=== PATIENT | male | born 1950 | race American Indian/Alaskan Native ===

== ENCOUNTER 2019-09-16 21:16 | Inpatient (IN) | payer MEDICARE ==
[2019-09-16] MEDS ORDERED: AMIODARONE 150 MG/3 ML INJ IV ONE (22:02)
[2019-09-16] MEDS ORDERED: AMIODARONE 150 MG in DEXTROSE 5% IN WATER 100 ML IV ONE (22:03)
--- NOTE | 2019-09-16 22:09 | Emergency Department Report ---
ED Syncope HPI - General Chief Complaint: Syncope Stated Complaint: SYNCOPE Time Seen by Provider: 09/16/19 21:53 Source: patient - History of Present Illness Initial Comments: 69-year-old male with history of CAD with stents, A. fib, hypertension, diabetes, presents to ED following a syncopal episode at home. Patient states he was sitting in his chair, began feeling lightheaded, and woke up on the fl oor. Patient reports chest pain and palpitations. States he has been having chest pain for the last 2 weeks. States pain is substernal, nonradiating. The patient reports he is on Eliquis for anticoagulation. Patient denies having a criminal defense lawyer. Patient states he was recently seen at [facility] for chest pain 2 weeks ago. Reports that he was not admitted, he was discharged from the ER. Timing/Prior Episodes: single episode today Precipitating Factors: Positive: lightheadedness Loss of Consciousness: unsure Current Symptoms: chest pain - Related Data Allergies/Adverse Reactions: Allergies DENNIS Inhibitors Allergy (Verified 09/16/19 22:05) Unknown ED Review of Systems ROS: Stated complaint: SYNCOPE Other details as noted in HPI Comment: All other systems reviewed and negative Constitutional: denies: chills, fever Respiratory: shortness of breath Cardiovascular: chest pain, palpitations Gastrointestinal: denies: abdominal pain, nausea, vomiting ED Past Medical Hx - Past Medical History Previous Medical History?: Yes Hx Hypertension: Yes Hx CVA: Yes Hx Congestive Heart Failure: Yes Hx Diabetes: Yes Hx COPD: Yes Additional medical history: Afib - Surgical History Past Surgical History?: No - Social History Smoking Status: Unknown if ever smoked Substance Use Type: None ED Physical Exam - General Limitations: No Limitations General appearance: alert, in no apparent distress - Head Head exam: Present: atraumatic, normocephalic - Eye Eye exam: Present: normal appearance, EOMI - ENT ENT exam: Present: mucous membranes moist - Neck Neck exam: Present: normal inspection - Respiratory Respiratory exam: Present: normal lung sounds bilaterally. Absent: respiratory distress - Cardiovascular Cardiovascular Exam: Present: tachycardia, irregular rhythm - GI/Abdominal GI/Abdominal exam: Present: soft. Absent: distended, tenderness - Extremities Exam Extremities exam: Present: normal inspection - Neurological Exam Neurological exam: Present: alert, oriented X3 - Psychiatric Psychiatric exam: Present: normal affect, normal mood - Skin Skin exam: Present: warm, dry, intact, normal color ED Course Vital Signs 09/16/19 09/16/19 09/16/19 21:45 22:00 22:03 Temperature 98.6 F Pulse Rate 128 H 155 H 135 H Respiratory 23 15 16 Rate Blood Pressure 189/148 Blood Pressure 130/83 189/148 [Left] O2 Sat by Pulse 99 97 100 Oximetry 09/16/19 09/16/19 09/17/19 22:53 23:01 00:01 Temperature Pulse Rate 112 H 110 H 107 H Respiratory 14 13 Rate Blood Pressure 187/112 169/125 154/96 Blood Pressure [Left] O2 Sat by Pulse 98 97 Oximetry 09/17/19 09/17/19 09/17/19 01:00 02:00 03:01 Temperature Pulse Rate 107 H 105 H 112 H Respiratory 12 20 15 Rate Blood Pressure 152/105 146/107 146/107 Blood Pressure [Left] O2 Sat by Pulse 96 97 98 Oximetry - Reevaluation(s) Reevaluation #1: 09/16/19 22:00 Pt reports hx of Afib. On monitor, pt appears to be in Afib w/ RVR, but having several runs of Vtach. Amiodarone 150 given. HR improved. Amio drip ordered. Awaiting labs. - Consultations Consultation #1: 09/17/19 00:18 Spoke w/ Dr Franks. Aware of pt, ok w/ amiodarone gtt ED Medical Decision Making - Lab Data Result diagrams: 09/16/19 Unknown 09/16/19 Unknown - EKG Data -: EKG Interpreted by Co EKG shows normal: QRS complexes Rate: tachycardia - EKG Data Interpretation: nonspecific ST-T wave kody - Radiology Data Radiology results: report reviewed, image reviewed - Medical Decision Making 69-year-old male presents to ED with syncopal episode. Patient found to be in A. fib with RVR, also having nonsustained ventricular tachycardia. Amiodarone bolus and drip administered. Rate improved, along with runs of V. tach. Tropon in is normal. Hydralazine given for elevated blood pressure. Patient reports he is currently taking Eliquis for anticoagulation. Spoke with hospitalist, Dr Parada, will admit for further management. - Differential Diagnosis arrythmia, dehydration, electrolyte abnormality, ACS Critical Care Time: Yes Critical care time in (mins) excluding proc time.: 35 Critical care attestation.: If time is entered above; I have spent that time in minutes in the direct care of this critically ill patient, excluding procedure time. Critical Care Time: 35 min ED Disposition Clinical Impression: Syncope, Atrial fibrillation with RVR, Ventricular tachycardia, nonsustained, Hypertensive emergency Disposition: 09 OP ADMIT IP TO THIS HOSP Is pt being admited?: Yes Condition: Stable Time of Disposition: 23:45
[2019-09-16] MEDS ORDERED: AMIODARONE 150 MG in DEXTROSE 5% IN WATER 97 ML IV ONE (22:20)
[2019-09-16 22:38] LABS: Basophils # (Auto) 0.1 K/mm3 (0.0-0.1); Basophils % (Auto) 0.7 % (0.0-1.8); Eosinophils # (Auto) 0.5 K/mm3 (0.0-0.4); Hematocrit 42.2 % (35.5-45.6); Lymphocytes # (Auto) 3.8 K/mm3 (1.2-5.4); Lymphocytes % (Auto) 30.2 % (13.4-35.0); Mean Corpuscular HGB Conc 36 % (32-34); Mean Corpuscular Volume 82 fl (84-94); Monocytes # (Auto) 0.9 K/mm3 (0.0-0.8); Monocytes % (Auto) 7.1 % (0.0-7.3); Platelet Count 264 K/mm3 (140-440); Red Blood Count 5.12 M/mm3 (3.65-5.03); Red Cell Distribution Width 13.7 % (13.2-15.2)
--- NOTE | 2019-09-16 22:43 | XRay Report ---
CHEST 1 VIEW INDICATION / CLINICAL INFORMATION: syncope. COMPARISON: None available. FINDINGS: SUPPORT DEVICES: None. HEART / MEDIASTINUM: No significant abnormality. LUNGS / PLEURA: No significant pulmonary or pleural abnormality. No pneumothorax. ADDITIONAL FINDINGS: No significant additional findings. IMPRESSION: 1. No significant change Signer Name: Hernán Alejandro MD Signed: 09/16/2019 10:38 PM Workstation Name: [id number]
[2019-09-16 22:49] LABS: INR 1.08 (0.87-1.13)
[2019-09-16] MEDS ORDERED: hydrALAZINE 20 MG/1 ML INJ ONE (22:49)
[2019-09-16 22:50] LABS: Partial Thromboplastin Time 25.6 Sec. (24.2-36.6)
[2019-09-16] MEDS ORDERED: hydrALAZINE 20 MG/1 ML INJ IV ONE (22:53)
[2019-09-16] MEDS: AMIODARONE 900 MG in DEXTROSE 5% IN WATER 482 ML IV SCH (23:00)
[2019-09-17] MEDS ORDERED: ONDANSETRON 4 MG/2 ML INJ IV PRN (00:40)
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
[2019-09-17] MEDS ORDERED: hydrALAZINE 20 MG/1 ML INJ IV ONE (05:30)
[2019-09-17] MEDS ORDERED: hydrALAZINE 20 MG/1 ML INJ ONE ×3 (05:34→18:53)
[2019-09-17] MEDS ORDERED: MORPHINE 2 MG/1 ML INJ ONE ×3 (08:42→15:47)
[2019-09-17] MEDS: MORPHINE 2 MG/1 ML INJ IV PRN ×2 (08:56→15:52)
--- NOTE | 2019-09-17 11:36 | Event Note ---
Date: 09/17/19 Patient seen and examined. We'll continue the plan as outlined in H&P. Time spent = 26 minutes with greater than 50% of time spent on coordination of care and counseling.
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
[2019-09-17] MEDS: hydrALAZINE 20 MG/1 ML INJ IV PRN (13:04)
[2019-09-17] MEDS ORDERED: HEPARIN 5,000 UNIT/1 ML VIAL ONE (14:40)
[2019-09-17] MEDS: HEPARIN 5,000 UNIT/1 ML VIAL SUB-Q SCH ×2 (14:46→23:08)
[2019-09-18] MEDS: hydrALAZINE 20 MG/1 ML INJ IV PRN ×2 (00:27→15:46)
[2019-09-18] MEDS: AMIODARONE 900 MG in DEXTROSE 5% IN WATER 482 ML IV SCH (01:00)
[2019-09-18] MEDS: HEPARIN 5,000 UNIT/1 ML VIAL SUB-Q SCH (05:09)
[2019-09-18 07:59] LABS: Basophils # (Auto) 0.1 K/mm3 (0.0-0.1); Basophils % (Auto) 0.5 % (0.0-1.8); Eosinophils # (Auto) 0.2 K/mm3 (0.0-0.4); Eosinophils % (Auto) 1.9 % (0.0-4.3); Hematocrit 41.7 % (35.5-45.6); Hemoglobin 14.5 gm/dl (11.8-15.2); Lymphocytes # (Auto) 2.5 K/mm3 (1.2-5.4); Lymphocytes % (Auto) 23.8 % (13.4-35.0); Mean Corpuscular HGB Conc 35 % (32-34); Mean Corpuscular Volume 82 fl (84-94); Monocytes # (Auto) 0.6 K/mm3 (0.0-0.8); Monocytes % (Auto) 6.1 % (0.0-7.3); Platelet Count 242 K/mm3 (140-440); Red Blood Count 5.06 M/mm3 (3.65-5.03); Red Cell Distribution Width 13.9 % (13.2-15.2)
[2019-09-18 08:07] LABS: INR 1.12 (0.87-1.13)
[2019-09-18 08:08] LABS: Partial Thromboplastin Time 30.2 Sec. (24.2-36.6)
[2019-09-18 08:14] LABS: Calcium 8.6 mg/dL (8.4-10.2)
--- NOTE | 2019-09-18 10:14 | Progress Note ---
Assessment and Plan Assessment and plan: Syncope. Continued telemetry monitoring. Follow-up echocardiogram and carotid Dopplers. Ischemic evaluation per cardiology. Paroxysmal atrial fibrillation. Follow-up echocardiogram and check TSH. JANICE. I suspect the patient has chronic kidney disease. we do not have a baseline creatinine to compare. Follow-up BMP in a.m. Check renal ultrasound. History of coronary artery disease. As above per cardiology. Type 2 diabetes mellitus. Accu-Cheks and sliding scale insulin. Essential hypertension. Continue home antihypertensive medications Hyperlipidemia. Continue statins. History Interval history: No new issues overnight. Hospitalist Physical - Constitutional Vitals: Temp Pulse Resp BP Pulse Ox 99.0 F 74 18 183/88 95 09/18/19 08:29 09/18/19 08:29 09/18/19 08:29 09/18/19 08:29 09/18/19 08:29 General appearance: Present: no acute distress, well-nourished - EENT Eyes: Present: PERRL, EOM intact ENT: hearing intact, clear oral mucosa, dentition normal - Neck Neck: Present: supple, normal ROM - Respiratory Respiratory effort: normal Respiratory: bilateral: CTA - Cardiovascular Rhythm: regular Heart Sounds: Present: S1 & S2. Absent: gallop, rub - Extremities Extremities: no ischemia, No edema, Full ROM - Abdominal General gastrointestinal: soft, non-tender, non-distended, normal bowel sounds - Integumentary Integumentary: Present: clear, warm, dry - Neurologic Neurologic: CNII-XII intact, moves all extremities Results - Labs CBC & Chem 7: 09/18/19 05:52 09/18/19 05:52 Labs: Laboratory Last Values WBC 10.4 K/mm3 (4.5-11.0) 09/18/19 05:52 RBC 5.06 M/mm3 (3.65-5.03) H 09/18/19 05:52 Hgb 14.5 gm/dl (11.8-15.2) 09/18/19 05:52 Hct 41.7 % (35.5-45.6) 09/18/19 05:52 MCV 82 fl (84-94) L 09/18/19 05:52 MCH 29 pg (28-32) 09/18/19 05:52 MCHC 35 % (32-34) H 09/18/19 05:52 RDW 13.9 % (13.2-15.2) 09/18/19 05:52 Plt Count 242 K/mm3 (140-440) 09/18/19 05:52 Lymph % (Auto) 23.8 % (13.4-35.0) 09/18/19 05:52 [place] % (Auto) 6.1 % (0.0-7.3) 09/18/19 05:52 Eos % (Auto) 1.9 % (0.0-4.3) 09/18/19 05:52 Baso % (Auto) 0.5 % (0.0-1.8) 09/18/19 05:52 Lymph # 2.5 K/mm3 (1.2-5.4) 09/18/19 05:52 [place] # 0.6 K/mm3 (0.0-0.8) 09/18/19 05:52 Eos # 0.2 K/mm3 (0.0-0.4) 09/18/19 05:52 Baso # 0.1 K/mm3 (0.0-0.1) 09/18/19 05:52 Seg Neutrophils % 67.7 % (40.0-70.0) 09/18/19 05:52 Seg Neutrophils # 7.1 K/mm3 (1.8-7.7) 09/18/19 05:52 PT 14.6 Sec. (12.2-14.9) 09/18/19 05:52 INR 1.12 (0.87-1.13) 09/18/19 05:52 APTT 30.2 Sec. (24.2-36.6) 09/18/19 05:52 Sodium 141 mmol/L (137-145) 09/18/19 05:52 Potassium 3.0 mmol/L (3.6-5.0) L D 09/18/19 05:52 Chloride 101.6 mmol/L (98-107) 09/18/19 05:52 Carbon Dioxide 22 mmol/L (22-30) 09/18/19 05:52 Anion Gap 20 mmol/L 09/18/19 05:52 BUN 18 mg/dL (9-20) 09/18/19 05:52 Creatinine 1.8 mg/dL (0.8-1.5) H 09/18/19 05:52 Estimated GFR 45 ml/min 09/18/19 05:52 BUN/Creatinine Ratio 10 % 09/18/19 05:52 Glucose 130 mg/dL (75-100) H 09/18/19 05:52 POC Glucose 111 (70-105) H 09/17/19 19:14 Calcium 8.6 mg/dL (8.4-10.2) 09/18/19 05:52 Troponin T 0.016 ng/mL (0.00-0.029) 09/16/19 Unknown NT-Pro-B Natriuret Pep 626.7 pg/mL (0-900) 09/16/19 Unknown Active Medications - Current Medications Current Medications: Generic Name Dose Route Start Last Admin Trade Name Freq PRN Reason Stop Dose Admin Heparin Sodium (Porcine) 5,000 unit 09/17/19 14:00 09/18/19 05:09 Heparin SUB-Q 5,000 unit Q8HR LYNNE Administration Hydralazine HCl 10 mg 09/17/19 09:18 09/18/19 00:27 Apresoline IV 10 mg Q6H PRN Administration Systolic BP > 170 Amiodarone HCl 900 mg/ 500 mls @ 33.333 mls/hr 09/16/19 23:00 09/18/19 01:00 Dextrose IV 0.5 mg/min DIRECT LYNNE 16.667 mls/hr Administration Protocol 1 MG/MIN Magnesium Hydroxide 30 ml 09/17/19 00:40 Milk Of Magnesia PO Q4H PRN Constipation Morphine Sulfate 2 mg 09/17/19 00:40 09/17/19 15:52 Morphine IV 2 mg Q4H PRN Administration Pain, Moderate (4-6) Ondansetron HCl 4 mg 09/17/19 00:40 Zofran IV Q8H PRN Nausea And Vomiting Pneumococcal Polyvalent Vaccine 0.5 ml 09/18/19 12:00 Pneumovax 23 IM 09/18/19 12:01 .ONCE ONE Sodium Chloride 10 ml 09/17/19 10:00 09/17/19 22:40 Sodium Chloride Flush Syringe 10 Ml IV 10 ml BID LYNNE Administration Sodium Chloride 10 ml 09/17/19 00:40 Sodium Chloride Flush Syringe 10 Ml IV PRN PRN LINE FLUSH Nutrition/Malnutrition Assess - Dietary Evaluation Nutrition/Malnutrition Findings: Nutrition Notes Start: 09/18/19 09:40 Freq: Status: Active Protocol: Document 09/18/19 09:40 LP (Rec: 09/18/19 09:43 LP [id number]) Nutrition Notes Need for Assessment generated from: MD Order Initial or Follow up Assessment Current Diagnosis COPD,Diabetes,Hypertension, Heart Failure Other Pertinent Diagnosis Syncope Current Diet Cardiac Labs/Tests BG 155 Pertinent Medications Reviewed Height 6 ft 1 in Weight 113.398 kg [place] Body Weight (kg) 83.63 BMI 33.0 Weight Status Obese Subjective/Other Information Consult for diet education. Pt states eating well [employer] and not really liking food here. Food preferences noted. Pt denies need for diet education . Nutrition Intervention Revisit per MD consult or patient Sign Off request:
--- NOTE | 2019-09-18 10:41 | Progress Note ---
Assessment and Plan 1. Syncope 2. Paroxysmal atrial fibrillation currently reverted to sinus rhythm 3. History of coronary artery disease 4. Type 2 diabetes mellitus 5. Essential hypertension 6. Hyperlipidemia Plan. Cardiac gee sta ble. BP is low today will discontinue diuresis. Check echo and Lexiscan Subjective Date of service: 09/18/19 Interval history: No cardiac symptoms Objective Vital Signs Temp Pulse Resp BP BP Pulse Ox 09/18/19 08:29 99.0 F 74 18 183/88 95 09/18/19 05:32 99.1 F 09/18/19 05:31 69 18 164/83 99 09/18/19 00:52 87 13 160/92 09/18/19 00:17 18 09/18/19 00:15 99.3 F 71 20 198/81 99 09/18/19 00:04 71 09/17/19 23:52 99.3 F 71 20 198/81 96 09/17/19 23:46 160/92 09/17/19 23:20 27 H 160/92 100 09/17/19 23:10 24 160/92 100 09/17/19 23:00 67 16 162/98 160/92 97 09/17/19 22:50 19 162/98 99 09/17/19 22:40 11 L 162/98 99 09/17/19 22:30 20 175/93 99 09/17/19 22:20 19 175/93 100 09/17/19 22:10 13 175/93 100 09/17/19 22:00 14 164/86 99 09/17/19 21:50 17 164/86 100 09/17/19 21:40 14 164/86 100 09/17/19 21:30 25 H 160/83 100 09/17/19 21:20 13 160/83 99 09/17/19 21:10 15 160/83 98 09/17/19 21:00 67 16 168/88 160/83 98 09/17/19 20:50 22 168/88 99 09/17/19 20:00 10 L 157/106 98 09/17/19 19:00 61 11 L 177/110 98 09/17/19 18:00 81 22 148/120 98 09/17/19 17:01 60 17 186/105 97 09/17/19 16:00 60 14 171/87 95 09/17/19 15:01 64 17 167/92 98 09/17/19 14:46 98 F 68 16 195/94 100 09/17/19 14:01 70 19 185/106 99 09/17/19 13:04 56 L 18 187/106 100 09/17/19 13:00 56 L 18 187/106 99 09/17/19 12:01 59 L 14 174/87 98 09/17/19 12:00 98.4 F 60 16 174/87 100 09/17/19 11:01 58 L 15 162/93 95 09/17/19 11:00 60 16 162/93 100 - Physical Examination General: Appears Well, No Apparent Distress HEENT: Positive: PERRL, Mucus Membranes Moist Neck: Positive: neck supple, trachea midline Cardiac: Lungs: Neuro: Positive: Grossly Intact Abdomen: Positive: Soft, Active Bowel Sounds. Negative: Tender, Distended /Rectal: Normal Prostate, No Masses Skin: Positive: Clear Incision: Cardiac Cath Site Musculoskeletal: No Pain, Normal Range of Motion Gait: Normal Gait Extremities: Present: normal. Absent: edema - Labs and Meds Coagulation 09/18/19 Range/Units 05:52 PT 14.6 (12.2-14.9) Sec. INR 1.12 (0.87-1.13) APTT 30.2 (24.2-36.6) Sec. CBC 09/18/19 Range/Units 05:52 WBC 10.4 (4.5-11.0) K/mm3 RBC 5.06 H (3.65-5.03) M/mm3 Hgb 14.5 (11.8-15.2) gm/dl Hct 41.7 (35.5-45.6) % Plt Count 242 (140-440) K/mm3 Lymph # 2.5 (1.2-5.4) K/mm3 [place] # 0.6 (0.0-0.8) K/mm3 Eos # 0.2 (0.0-0.4) K/mm3 Baso # 0.1 (0.0-0.1) K/mm3 Comprehensive Metabolic Panel 09/18/19 Range/Units 05:52 Sodium 141 (137-145) mmol/L Potassium 3.0 L D (3.6-5.0) mmol/L Chloride 101.6 (98-107) mmol/L Carbon Dioxide 22 (22-30) mmol/L BUN 18 (9-20) mg/dL Creatinine 1.8 H (0.8-1.5) mg/dL Glucose 130 H (75-100) mg/dL Calcium 8.6 (8.4-10.2) mg/dL
[2019-09-18] MEDS ORDERED: PNEUMOCOCCAL 23 Valent 0.5 ML VIAL IM ONE (12:00)
--- NOTE | 2019-09-18 12:54 | Ultrasound Report ---
Retroperitoneal Ultrasound History: JANICE , acute renal insufficiency. Comparison: None Procedure: Real time ultrasound was utilized to evaluate. Findings: The right kidney measures 10.2 cm and the left kidney measures 9.3cm. No hydronephrosis or nephrolithiasis is seen. Both kidneys demonstrate normal echogenicity and normal renal cortical thic kness. No renal masses are seen. No perinephric fluid collections are identified. No ureteral calcu li are noted. The urinary bladder is unremarkable. Incidentally noted is echogenic liver suggestive of hepatic steatosis. Impression: 1. Normal bilateral renal ultrasound. 2. Incidental finding of echogenic liver suggesting hepatic steatosis. Signer Name: Yoselyn Cortes MD Signed: 09/18/2019 12:50 PM Workstation Name: [id number]
[2019-09-18] MEDS ORDERED: HEPARIN/ 0.45% NACL DRIP 25,000 UNIT/500 ML BAG ONE (15:52)
[2019-09-18] MEDS ORDERED: NITROGLYCERIN 0.4 MG TAB SUBL SL ONE (15:56)
[2019-09-18 16:10] LABS: Hemoglobin 15.3 gm/dl (11.8-15.2)
[2019-09-18 16:11] LABS: Hematocrit 42.8 % (35.5-45.6)
[2019-09-18 16:18] LABS: INR 1.1 (0.87-1.13)
[2019-09-18] MEDS: MAGNESIUM HYDROXIDE (MOM) ORAL LIQD UDC PO PRN (17:30)
[2019-09-18] MEDS: AMIODARONE 200 MG TAB PO SCH ×2 (17:30→21:51)
[2019-09-18] MEDS: dilTIAZem/D5W 100 MG/100 ML BAG IV SCH (20:35)
[2019-09-18] MEDS: HEPARIN/ 0.45% NACL DRIP 25,000 UNIT/500 ML BAG IV SCH (22:30)
--- NOTE | 2019-09-18 22:44 | Cat Scan Report ---
Head CT without intravenous contrast INDICATION: Syncope COMPARISON: None FINDINGS: The ventricles are normal in size and position. No hemorrhage or extra-axial fluid collecti on. No edema or mass effect. No focal infarct seen. Portions of the sinuses visualized are clear. No skull fracture identified. There are mild age-related atrophic changes. There may be an occipital sca lp hematoma. IMPRESSION: Negative head CT Automated exposure control was utilized to diminish radiation dose Signer Name: Hernán Alejandro MD Signed: 09/18/2019 10:39 PM Workstation Name: [id number]
--- NOTE | 2019-09-18 22:57 | Cat Scan Report ---
CTA CHEST WITH CONTRAST INDICATION / CLINICAL INFORMATION: syncope. Chest pain. TECHNIQUE: Axial CT images were obtained through the chest after injection of 100 mL Omnipaque 350 IV contrast. 3 plane MIP and/or 3D reconstructions were produced. All CT scans at this location are performed usin g CT dose reduction for RANIRA by means of automated exposure control. COMPARISON: None available. FINDINGS: PULMONARY ARTERIES: No pulmonary emboli. THORACIC AORTA: No significant abnormality. HEART: No significant abnormality. CORONARY ARTERIES: Moderate coronary artery calcification especially in the LAD. MEDIASTINUM / ROMULO: No significant abnormality. PLEURA: No pleural effusion. No pneumothorax. LUNGS: Minimal bibasilar interstitial edema. No acute airspace disease. ADDITIONAL FINDINGS: None. UPPER ABDOMEN: No acute findings. SKELETAL STRUCTURES: No significant osseous abnormality. IMPRESSION: 1. No CT evidence for pulmonary embolism. 2. Minimal bibasilar interstitial edema. No pneumonia. Signer Name: Blue Qiu MD Signed: 09/18/2019 10:53 PM Workstation Name: [id number]
[2019-09-19] MEDS: dilTIAZem/D5W 100 MG/100 ML BAG IV SCH (07:15)
[2019-09-19] MEDS ORDERED: REGADENOSON 0.4 MG/5 ML INJ IV ONE ×2 (09:21→09:42)
[2019-09-19] MEDS: dilTIAZem 30 MG TAB PO SCH ×3 (14:09→23:52)
[2019-09-19] MEDS: AMIODARONE 200 MG TAB PO SCH ×2 (14:31→21:33)
[2019-09-19] MEDS: POTASSIUM CHLORIDE ER 20 MEQ TAB PO SCH (14:31)
[2019-09-19] MEDS: VALSARTAN 160MG TAB PO SCH (14:32)
--- NOTE | 2019-09-19 14:32 | Progress Note ---
Assessment and Plan - Patient Problems (1) Syncope Current Visit: Yes Status: Acute Plan to address problem: Patient has multivessel coronary artery disease, with poor follow-up, and paroxysmal atrial fibrillation. On telemetry, there is intermittent nonsustained ventricular tachycardia. We will recommend aggressive cardiac evaluation and management, a cardiac catheterization will be planned and further cardiac management will depend on clinical course. (2) Atrial fibrillation with RVR Current Visit: Yes Status: Acute Plan to address problem: Atrial fibrillation rate control, cardiac catheterization is scheduled for tomorrow morning. Subjective Date of service: 09/19/19 Interval history: The patient's a 69-year-old man with an extensive cardiac history. He reports that several years ago he was diagnosed with coronary artery disease, and had multiple coronary stent procedures [facility]. Subsequently, he was managed at the [facility] for paroxysmal atrial fibrillation, hypertension and diabetes. His oral anticoagulation was Eliquis. He is admittedly noncompliant with outpatient office visits with a research program internship, states that he moved from [place] to this area of [facility] and has not yet established primary all cardiac care in this area. He is also uncertain about compliance with his medical therapy prior to this presentation. He presents to the hospital at this time following a syncopal episode at home. He was sitting in a chair in his living room and suddenly fell to the floor. There was no chest pain, no palpitations and no shortness of breath. He states that by the time the shanker out came to him he had woken up and decided to take a nitroglycerin glycerin sublingual. Of note, the nitroglycerin was after his syncope and not preceding. In the hospital, he was noted with intermittent, rapid atrial fibrillation. A review of his ECGs and telemetry strips show intermittent bursts of rapid atrial fibrillation, interspersed with short bouts of nonsustained ventricular tachycardia. He is currently in atrial fibrillation with a well-controlled ventricular response on medications. Today, he underwent a Lexiscan thallium stress test, results are pending. Objective Vital Signs Temp Pulse Pulse Pulse Resp BP Pulse Ox 09/19/19 11:42 193/101 09/19/19 11:40 185/91 09/19/19 11:38 172/92 09/19/19 11:36 161/86 09/19/19 11:34 203/116 09/19/19 11:32 218/115 09/19/19 11:31 198/108 09/19/19 11:16 177/98 09/19/19 10:00 70 76 09/19/19 08:35 95 09/19/19 07:46 98.5 F 68 18 168/92 94 09/19/19 04:52 98.8 F 09/19/19 04:51 63 18 171/82 99 09/19/19 04:49 66 09/19/19 00:07 98.5 F 09/19/19 00:03 54 L 18 155/83 96 09/18/19 22:00 118 H 96 09/18/19 20:51 98.9 F 09/18/19 20:49 49 L 20 127/60 94 09/18/19 17:16 150 H 09/18/19 14:59 98 - Physical Examination General: Appears Well, No Apparent Distress HEENT: Positive: PERRL, Mucus Membranes Moist Neck: Positive: neck supple, trachea midline Cardiac: Positive: irregularly irregular Lungs: Positive: Decreased Breath Sounds Neuro: Positive: Grossly Intact Abdomen: Positive: Soft, Active Bowel Sounds. Negative: Tender, Distended Skin: Positive: Clear Musculoskeletal: No Pain, Normal Range of Motion Gait: Normal Gait Extremities: Absent: edema - Labs and Meds Coagulation 09/18/19 Range/Units 15:55 PT 14.3 (12.2-14.9) Sec. INR 1.10 (0.87-1.13) APTT 28.0 (24.2-36.6) Sec. CBC 09/18/19 Range/Units 15:55 Hgb 15.3 H (11.8-15.2) gm/dl Hct 42.8 (35.5-45.6) % Plt Count 270 (140-440) K/mm3
--- NOTE | 2019-09-19 14:38 | Progress Note ---
Assessment and Plan (1) Syncope Current Visit: Yes Status: Acute Plan to address problem: Possibly secondary to the cardiac arrhythmia. We will await cardiology evaluation and recommendation. Patient has multivessel coronary artery disease, with poor follow-up, and paroxysmal atrial fibrillation. On telemetry, there is intermittent nonsustained ventricular tachycardia. Recommended aggressive cardiac evaluation and management, a cardiac catheterization for tomorrow (2) Atrial fibrillation with RVR Current Visit: Yes Status: Acute Plan to address problem: Atrial fibrillation rate control, cardiac catheterization is scheduled for tomorrow morning. (3) Ventricular tachycardia, nonsustained Current Visit: Yes Status: Acute Plan to address problem: Patient currently on amiodarone drip. (4) Hypertension Current Visit: Yes Status: Acute Plan to address problem: Blood pressure stable and will monitor vital signs closely. (5) DVT prophylaxis Current Visit: Yes Status: Acute Plan to address problem: Patient placed on subcutaneous heparin. (6) Full code status Current Visit: Yes Status: Acute For cath tommorow. If cleared by Cardiology --patientmay go home tomorrow Subjective Date of service: 09/19/19 Principal diagnosis: A FIB WITH rvr Interval history: Patient is a 69-year-old male with known history of atrial fibrillation, diabetes mellitus, hypertension, and hyperlipidemia. He presents today comp laining of dizziness and syncopal episode at home. Indicates that he woke up and found himself on the floor. He denies any chest pain or shortness of breath, no nausea vomiting, no headache, no fever or chills. Upon arrival in the emergency room patient was found to be in atrial fibrillation with RVR. He was later found to be in nonsustained ventricular tachycardia. He was given IV amiodarone and subsequently placed on a drip Afib with good rate control now For cath tomorrow. Objective - Constitutional Vitals: Vital Signs - 12hr 09/19/19 09/19/19 09/19/19 04:49 04:51 04:52 Temperature 98.8 F Pulse Rate 66 63 Pulse Rate [ Left Dorsalis Pedis] Pulse Rate [ Right Dorsalis Pedis] Respiratory 18 Rate Blood Pressure 171/82 O2 Sat by Pulse 99 Oximetry 09/19/19 09/19/19 09/19/19 07:46 08:35 10:00 Temperature 98.5 F Pulse Rate 68 Pulse Rate [ 70 Left Dorsalis Pedis] Pulse Rate [ 76 Right Dorsalis Pedis] Respiratory 18 Rate Blood Pressure 168/92 O2 Sat by Pulse 94 95 Oximetry 09/19/19 09/19/19 09/19/19 11:16 11:31 11:32 Temperature Pulse Rate Pulse Rate [ Left Dorsalis Pedis] Pulse Rate [ Right Dorsalis Pedis] Respiratory Rate Blood Pressure 177/98 198/108 218/115 O2 Sat by Pulse Oximetry 09/19/19 09/19/19 09/19/19 11:34 11:36 11:38 Temperature Pulse Rate Pulse Rate [ Left Dorsalis Pedis] Pulse Rate [ Right Dorsalis Pedis] Respiratory Rate Blood Pressure 203/116 161/86 172/92 O2 Sat by Pulse Oximetry 09/19/19 09/19/19 09/19/19 11:40 11:42 14:09 Temperature Pulse Rate 78 Pulse Rate [ Left Dorsalis Pedis] Pulse Rate [ Right Dorsalis Pedis] Respiratory Rate Blood Pressure 185/91 193/101 O2 Sat by Pulse Oximetry 09/19/19 14:32 Temperature Pulse Rate 70 Pulse Rate [ Left Dorsalis Pedis] Pulse Rate [ Right Dorsalis Pedis] Respiratory Rate Blood Pressure O2 Sat by Pulse Oximetry General appearance: Present: no acute distress, well-nourished - EENT Eyes: PERRL, EOM intact ENT: hearing intact, clear oral mucosa Ears: bilateral: normal - Neck Neck: supple, normal ROM - Respiratory Respiratory effort: normal Respiratory: bilateral: CTA - Breasts Breasts: normal - Cardiovascular Rhythm: regular Heart Sounds: Present: S1 & S2. Absent: gallop, rub Extremities: pulses intact, No edema, normal color, Full ROM - Gastrointestinal General gastrointestinal: Present: soft, non-tender, non-distended, normal bowel sounds - Genitourinary Male genitourinary: normal - Integumentary Integumentary: clear, warm, dry - Musculoskeletal Musculoskeletal: 1, strength equal bilaterally - Neurologic Neurologic: moves all extremities - Psychiatric Psychiatric: memory intact, appropriate mood/affect, intact judgment & insight - Labs CBC & Chem 7: 09/18/19 15:55 09/20/19 05:06 Labs: Abnormal lab results 09/18/19 09/18/19 09/18/19 Range/Units 15:47 15:55 22:05 Hgb 15.3 H (11.8-15.2) gm/dl Heparin Anti-Xa Level (0.3-0.7) U.I./ml POC Glucose 109 H 131 H (70-105) 09/19/19 09/19/19 09/19/19 Range/Units 06:41 07:56 12:44 Hgb (11.8-15.2) gm/dl Heparin Anti-Xa Level 0.13 L (0.3-0.7) U.I./ml POC Glucose 132 H 123 H (70-105) 09/19/19 Range/Units 13:33 Hgb (11.8-15.2) gm/dl Heparin Anti-Xa Level < 0.10 L (0.3-0.7) U.I./ml POC Glucose (70-105)
[2019-09-19] MEDS: hydrALAZINE 20 MG/1 ML INJ IV PRN (16:31)
[2019-09-19] MEDS: HEPARIN 10,000 UNITS/10 ML VIAL ONE (16:57)
[2019-09-19] MEDS: HEPARIN/ 0.45% NACL DRIP 25,000 UNIT/500 ML BAG IV SCH (20:16)
[2019-09-19 22:03] LABS: Calcium 8.5 mg/dL (8.4-10.2)
--- NOTE | 2019-09-20 00:05 | Treadmill Report ---
LEFT VENTRICLE: Left ventricle is at the upper limits of normal in size. Perfusion study demonstrates a large, partially transient inferior defect, with mild to moderate reversibility on the resting study. Gated analysis demonstrates at least mild left ventricular systolic dysfunction with ejection fraction of 47%. CONCLUSION: Abnormal perfusion study with reversible ischemia in the inferior wall. Clinical correlation is recommended. JOB# [id number] [facility]/NTS
[2019-09-20] MEDS: dilTIAZem 30 MG TAB PO SCH (05:58)
[2019-09-20 07:01] LABS: Calcium 8.8 mg/dL (8.4-10.2)
[2019-09-20 08:50] LABS: Hematocrit 41.4 % (35.5-45.6); Hemoglobin 14.3 gm/dl (11.8-15.2)
[2019-09-20] MEDS: POTASSIUM CHLORIDE ER 20 MEQ TAB PO SCH ×2 (08:56→12:19)
[2019-09-20] MEDS ORDERED: POTASSIUM CHLORIDE ER 20 MEQ TAB PO NR (09:00)
[2019-09-20] MEDS ORDERED: SODIUM CHLORIDE 0.9% 500 ML 500 ML IV SCH (09:00)
[2019-09-20 09:02] LABS: INR 1.1 (0.87-1.13)
[2019-09-20] MEDS ORDERED: HEPARIN 10,000 UNITS/10 ML VIAL ONE (09:03)
[2019-09-20] MEDS ORDERED: HEPARIN/NS 5000 UNIT/500ML 1,000 ML IR ONE (09:03)
[2019-09-20] MEDS: fentaNYL 100 MCG/2 ML INJ ONE ×2 (09:45→10:09)
[2019-09-20] MEDS: MIDAZOLAM 2 MG/2 ML INJ ONE ×2 (09:46→10:09)
[2019-09-20] MEDS: VERAPAMIL 5 MG/2 ML INJ ONE ×2 (09:46→10:11)
[2019-09-20] MEDS: LIDOCAINE (2%) 20 MG/1 ML VIAL 20 ML MDV INFILTRATI ONE ×2 (09:46→10:10)
[2019-09-20] MEDS: HEPARIN 10,000 UNITS/10 ML VIAL ONE ×2 (09:46→10:11)
[2019-09-20] MEDS: NITROGLYCERIN SYRINGE 3 ML ONE ×2 (09:47→10:11)
--- NOTE | 2019-09-20 10:45 | Event Note ---
Date: 09/20/19 Cardiac catheterization was completed successfully via the right radial artery, no complications. Total contrast was 85 mL of Visipaque. Findings: 1. Severe three-vessel coronary artery disease including significant proximal left main disease in heavily calcified coronary vessels. 2. L ventricle systolic function is well preserved, ejection fraction 55%. We will refer for CT surgical evaluation.
--- NOTE | 2019-09-20 10:54 | Cardiac Catherization Report ---
CARDIAC CATHETERIZATION REPORT REASON FOR PROCEDURE: The patient is a 69-year-old man with a history of multivessel disease, who presented with unstable angina. After rule out UT protocol, a thallium stress test was done that revealed a moderate degree of reversible inferior wall ischemia. A cardiac catheterization was recommended. PROCEDURES: 1. Left heart catheterization. 2. Selective left and right coronary angiography. 3. Left ventricle angiography. 4. Sedation time, start 10:09, end 10:27. DESCRIPTION OF PROCEDURE: The patient was prepped and draped in a sterile fashion after informed consent. The right radial cath site was prepped and draped after a negative Massimo's test. The right radial artery was entered using Seldinger technique followed by placement of a 6-Slovenian hydrophilic sheath. Routine radial cocktail was administered via the sheath. Selective left and right coronary angiography was then performed using a #3.5 left Vijay and #4 right Vijay. The pigtail catheter was used for left ventricular angiography. The catheters were then removed, sheath removed, and hemostasis achieved using a TR band. The patient was returned to the postprocedure unit in stable condition. There were no complications. Total contrast used for the procedure was 85 mL. FINDINGS: HEMODYNAMICS: Left ventricular end-diastolic pressure was 35-39, following coronary angiography. Ascending aortic pressure was 181/81. There was no significant pressure gradient on pullback across the aortic valve. CORONARY ANGIOGRAPHY: There was severe, diffuse coronary calcification involving both left and right coronary arteries. The left main coronary artery contained a 40-50% stenosis of its proximal segment, extending from its ostium. The left anterior descending artery contained diffuse mild to moderate atherosclerosis of its proximal segment. There was diffuse moderate to moderately severe disease of the mid segment. The apical segment of the LAD was notable for a long segment of a near complete occlusion, greater than 99% with some slow forward flow into the apical segment of the LAD. The circumflex artery as noted is also severely heavily calcified with diffuse atherosclerosis. There was an up to 70-75% proximal stenosis of the mid obtuse marginal branch. More distally, there was an 80% stenosis of the distal AV groove circumflex leading to 2 medium sized terminal obtuse marginals. The right coronary artery was dominant. This vessel contained a greater than 80% ostial stenosis. This was followed by diffuse atherosclerosis of the mid segment. This vessel was then completely occluded in its mid segment at the acute margin. There was faint forward filling of the distal right coronary segments. Left ventricular systolic function was at the lower limits of normal, ejection fraction 55%. CONCLUSION: 1. Severely calcified coronary vessels. 2. Severe 3-vessel coronary artery disease including significant proximal left main disease. 3. Well-preserved left ventricular systolic function, ejection fraction 55%. RECOMMENDATIONS: The patient will be referred for CT surgery evaluation. [facility]# [id number] [facility]/NTS
[2019-09-20] MEDS ORDERED: SODIUM CHLORIDE 0.9% 1000 ML 1,000 ML IV SCH (11:00)
[2019-09-20 11:27] LABS: Hematocrit 41.5 % (35.5-45.6); Hemoglobin 14.5 gm/dl (11.8-15.2)
[2019-09-20 11:40] LABS: INR 1.16 (0.87-1.13)
[2019-09-20 11:48] LABS: Partial Thromboplastin Time 85.3 Sec. (24.2-36.6)
[2019-09-20] MEDS: VALSARTAN 160MG TAB PO SCH (12:18)
[2019-09-20] MEDS: AMIODARONE 200 MG TAB PO SCH (12:18)
[2019-09-20] MEDS: ASPIRIN EC 81 MG TAB PO SCH (12:19)
[2019-09-20] MEDS: METOPROLOL TARTRATE 25 MG TAB PO SCH ×2 (12:19→18:34)
[2019-09-20] MEDS: POTASSIUM CHLORIDE 10 MEQ 10 MEQ/100 ML BAG IV SCH ×2 (12:20→16:03)
[2019-09-20] MEDS ORDERED: HEPARIN/ 0.45% NACL DRIP 25,000 UNIT/500 ML BAG IV SCH (13:00)
--- NOTE | 2019-09-20 13:10 | Vascular Lab Report ---
Bilateral Carotid Doppler Ultrasound INDICATION : syncope TECHNIQUE: Grayscale and color Doppler imaging performed through the neck. COMPARISON: None FINDINGS: Right: There is mild atherosclerotic disease in the carotid bulb. Peak systolic velocity in the CCA is 49 cm/s with end-diastolic velocity of 9 cm/s. Peak systolic velocity in the proximal ICA is 54 c m/s with end-diastolic velocity of 7 cm/s. ICA to CCA ratio is less than 2. There is antegrade flow in the ECA and the vertebral artery. Left: There is mild atherosclerotic disease in the carotid bulb. Peak systolic velocity in the CCA is 62 cm/s with end-diastolic velocity of 17 cm/s. Peak systolic velocity in the proximal ICA is 79 cm/ s with end-diastolic velocity of 27 cm/s. ICA to CCA ratio is less than 2. There is antegrade flow i n the ECA and the vertebral artery. IMPRESSION: No hemodynamically significant stenosis by NASCET criteria. Signer Name: Samuel John MD Signed: 09/20/2019 1:06 PM Workstation Name: [id number]
--- NOTE | 2019-09-20 13:41 | Event Note ---
Date: 09/20/19 Patient had cardiac cath today, diagnosed with multivessel CAD. For transfer to [place].
--- NOTE | 2019-09-20 14:55 | Discharge Summary ---
Providers - Providers Date of Admission: 09/17/19 00:23 Date of discharge: 09/21/19 Attending physician: DAWIT WONG 09/17/19 00:17 Consult to Physician [CONS] Stat Comment: Dr. Herrera spoke with Dr. Lofton @ [phone] Consulting Provider: DAWIT LOFTON Physician Instructions: Reason For Exam: nonsus V tach 09/17/19 00:41 Consult to Dietitian/Nutrition [CONS] Routine Physician Instructions: Reason For Exam: Reason for Consult: Diet education 09/20/19 10:51 Consult to Cardiac Rehabilitation [CONS] Routine Reason For Exam: Cardiac Rehab Evaluation Hospitalization Condition: Fair Hospital course: Patient is a 69-year-old male with known history of atrial fibrillation, diabetes mellitus, hypertension, and hyperlipidemia. He presented to ED with dizziness and syncopal episode at home. He states that he woke up and found himself on the floor. He denies any chest pain or shortness of breath, no nausea vomiting, no headache, no fever or chills. Upon arrival in the emergency room patient was found to be in atrial fibrillation with RVR. He was later found to be in nonsustained ventricular tachycardia. He was given IV amiodarone and subsequently placed on a drip, and admitted. he was admitted, evaluated by glue maker. Cardiac catheterization was completed successfully via the right radial artery, and this revealed severe three-vessel coronary artery disease including significant proximal left main disease in heavily calcified coronary vessels. cardiology recommended transfer to [place] for Cardiothoracic Surgeon evaluation. He was eventually discharged following day 09/21/19 to [place] after bed obtained. Total time spent on discharge, 33 mins Disposition: [id number] [facility] IP - Discharge Diagnoses (1) CAD (coronary artery disease) Status: Acute (2) Obesity Status: Acute (3) Atrial fibrillation with RVR Status: Acute (4) Hypertension Status: Acute (5) Hypertensive emergency Status: Acute (6) Syncope Status: Acute (7) Ventricular tachycardia, nonsustained Status: Acute (8) Hypokalemia Status: Acute Core Measure Documentation - Palliative Care Palliative Care/ Comfort Measures: Not Applicable - Core Measures Any of the following diagnoses?: none Exam - Constitutional Vitals: Temp Pulse Resp BP Pulse Ox 98.1 F 77 18 164/103 96 09/20/19 08:12 09/20/19 10:35 09/20/19 08:12 09/20/19 10:35 09/20/19 08:12 Plan Diet: low fat, low cholesterol, low salt Special Instructions: other (Lasix 40mg iv daily) Plan of Treatment: 1.Follow up with PCP, 1 week after discharge. 2.Lasix 40mg iv daily Follow up with: PRIMARY CARE, [Referring] - 3-5 Days
[2019-09-20] MEDS: FUROSEMIDE 40 MG/4 ML INJ IV SCH (16:03)
[2019-09-20] MEDS: MAGNESIUM HYDROXIDE (MOM) ORAL LIQD UDC PO PRN (19:49)
[2019-09-21] MEDS: hydrALAZINE 20 MG/1 ML INJ IV PRN (00:57)
[2019-09-21] MEDS: METOPROLOL TARTRATE 25 MG TAB PO SCH ×3 (04:47→18:14)
[2019-09-21] MEDS: FUROSEMIDE 40 MG/4 ML INJ IV SCH (06:11)
--- NOTE | 2019-09-21 07:21 | Progress Note ---
Assessment and Plan Assessment and plan: (1) Syncope Current Visit: Yes Status: Acute Plan to address problem: Possibly secondary to the cardiac arrhythmia. We will await cardiology evaluation and recommendation. Patient has multivessel coronary artery disease, with poor follow-up, and paroxysmal atrial fibrillation. On telemetry, there is intermittent nonsustained ventricular tachycardia. Recommended aggressive cardiac evaluation and management, (2) Atrial fibrillation with RVR Current Visit: Yes Status: Acute Plan to address problem: Atrial fibrillation rate control, cardiac catheterization is scheduled for tomorrow morning. (3) Ventricular tachycardia, nonsustained Current Visit: Yes Status: Acute Plan to address problem: Patient currently on amiodarone drip. (4) Hypertension Current Visit: Yes Status: Acute Plan to address problem: Blood pressure stable and will monitor vital signs closely. (5) DVT prophylaxis Current Visit: Yes Status: Acute Plan to address problem: Patient placed on subcutaneous heparin. CAD, multivessel cardiology recommends transfer to [place] for CT evaluation History Interval history: Syncope Dizziness Hospitalist Physical - Physical exam Narrative exam: General appearance: Present: no acute distress, obese - EENT Eyes: PERRL, EOM intact ENT: hearing intact, clear oral mucosa Ears: bilateral: normal - Neck Neck: supple, normal ROM - Respiratory Respiratory effort: normal Respiratory: bilateral: CTA - Breasts Breasts: normal - Cardiovascular Rhythm: regular Heart Sounds: Present: S1 & S2. Absent: gallop, rub Extremities: pulses intact, No edema, normal color, Full ROM - Gastrointestinal General gastrointestinal: Present: soft, non-tender, non-distended, normal bowel sounds - Genitourinary Male genitourinary: normal - Integumentary Integumentary: clear, warm, dry - Musculoskeletal Musculoskeletal: 1, strength equal bilaterally - Neurologic Neurologic: moves all extremities - Psychiatric Psychiatric: memory intact, appropriate mood/affect, intact judgment & insight - Constitutional Vitals: Temp Pulse Resp BP Pulse Ox 98.2 F 62 18 185/75 92 09/21/19 03:41 09/21/19 03:41 09/21/19 03:41 09/21/19 04:47 09/21/19 03:41 General appearance: Present: no acute distress, obese Results - Labs CBC & Chem 7: 09/20/19 11:02 09/20/19 05:06 Labs: Laboratory Last Values WBC 10.4 K/mm3 (4.5-11.0) 09/18/19 05:52 RBC 5.06 M/mm3 (3.65-5.03) H 09/18/19 05:52 Hgb 14.5 gm/dl (11.8-15.2) 09/20/19 11:02 Hct 41.5 % (35.5-45.6) 09/20/19 11:02 MCV 82 fl (84-94) L 09/18/19 05:52 MCH 29 pg (28-32) 09/18/19 05:52 MCHC 35 % (32-34) H 09/18/19 05:52 RDW 13.9 % (13.2-15.2) 09/18/19 05:52 Plt Count 227 K/mm3 (140-440) 09/20/19 11:02 Lymph % (Auto) 23.8 % (13.4-35.0) 09/18/19 05:52 [place] % (Auto) 6.1 % (0.0-7.3) 09/18/19 05:52 Eos % (Auto) 1.9 % (0.0-4.3) 09/18/19 05:52 Baso % (Auto) 0.5 % (0.0-1.8) 09/18/19 05:52 Lymph # 2.5 K/mm3 (1.2-5.4) 09/18/19 05:52 [place] # 0.6 K/mm3 (0.0-0.8) 09/18/19 05:52 Eos # 0.2 K/mm3 (0.0-0.4) 09/18/19 05:52 Baso # 0.1 K/mm3 (0.0-0.1) 09/18/19 05:52 Seg Neutrophils % 67.7 % (40.0-70.0) 09/18/19 05:52 Seg Neutrophils # 7.1 K/mm3 (1.8-7.7) 09/18/19 05:52 PT 15.0 Sec. (12.2-14.9) H 09/20/19 11:02 INR 1.16 (0.87-1.13) H 09/20/19 11:02 APTT 85.3 Sec. (24.2-36.6) H* 09/20/19 11:02 Heparin Anti-Xa Level 0.10 U.I./ml (0.3-0.7) L 09/21/19 05:27 Sodium 141 mmol/L (137-145) 09/20/19 05:06 Potassium 3.1 mmol/L (3.6-5.0) L 09/20/19 05:06 Chloride 102.8 mmol/L (98-107) 09/20/19 05:06 Carbon Dioxide 22 mmol/L (22-30) 09/20/19 05:06 Anion Gap 19 mmol/L 09/20/19 05:06 BUN 19 mg/dL (9-20) 09/20/19 05:06 Creatinine 1.6 mg/dL (0.8-1.5) H 09/20/19 05:06 Estimated GFR 52 ml/min 09/20/19 05:06 BUN/Creatinine Ratio 12 % 09/20/19 05:06 Glucose 121 mg/dL (75-100) H 09/20/19 05:06 POC Glucose 147 (70-105) H 09/20/19 21:03 Calcium 8.8 mg/dL (8.4-10.2) 09/20/19 05:06 Troponin T 0.016 ng/mL (0.00-0.029) 09/16/19 Unknown NT-Pro-B Natriuret Pep 626.7 pg/mL (0-900) 09/16/19 Unknown TSH 2.260 mlU/mL (0.270-4.200) 09/18/19 15:55 Active Medications - Current Medications Current Medications: Generic Name Dose Route Start Last Admin Trade Name Freq PRN Reason Stop Dose Admin Amiodarone HCl 200 mg 09/20/19 11:00 09/20/19 12:18 Cordarone PO 200 mg QDAY LYNNE Administration Aspirin 81 mg 09/20/19 11:00 09/20/19 12:19 Halfprin Ec PO 81 mg QDAY LYNNE Administration Atorvastatin Calcium 40 mg 09/20/19 22:00 09/20/19 21:55 Lipitor PO 40 mg QHS LYNNE Administration Furosemide 40 mg 09/20/19 11:00 09/21/19 06:11 Lasix IV 40 mg DAILY@0600 LYNNE Administration Hydralazine HCl 10 mg 09/17/19 09:18 09/21/19 00:57 Apresoline IV 10 mg Q6H PRN Administration Systolic BP > 170 Sodium Chloride 500 mls @ 50 mls/hr 09/20/19 09:00 09/20/19 09:47 Nacl 0.9% 500 Ml IV 100 mls DIRECT LYNNE Administration Heparin Sodium/Sodium Chloride 25,000 unit in 500 mls @ 20 mls/hr 09/20/19 13:00 09/21/19 06:36 Heparin/ 0.45% Nacl-25,000 Unit/500 Ml IV 1,100 units/hr TITRATE LYNNE 22 mls/hr Titration Protocol 1,000 UNITS/HR Isosorbide Mononitrate 30 mg 09/20/19 11:00 09/20/19 12:19 Imdur PO 30 mg QDAY LYNNE Administration Magnesium Hydroxide 30 ml 09/17/19 00:40 09/20/19 19:49 Milk Of Magnesia PO 30 ml Q4H PRN Administration Constipation Metoprolol Tartrate 25 mg 09/20/19 11:00 09/21/19 04:47 Metoprolol PO 25 mg Q8H LYNNE Administration Morphine Sulfate 2 mg 09/17/19 00:40 09/17/19 15:52 Morphine IV 2 mg Q4H PRN Administration Pain, Moderate (4-6) Ondansetron HCl 4 mg 09/17/19 00:40 Zofran IV Q8H PRN Nausea And Vomiting Potassium Chloride 20 meq 09/20/19 11:00 09/20/19 12:19 K-Dur PO 20 meq QDAY LYNNE Administration Sodium Chloride 10 ml 09/17/19 10:00 09/20/19 21:55 Sodium Chloride Flush Syringe 10 Ml IV 10 ml BID LYNNE Administration Sodium Chloride 10 ml 09/17/19 00:40 09/21/19 06:12 Sodium Chloride Flush Syringe 10 Ml IV 10 ml PRN PRN Administration LINE FLUSH Valsartan 160 mg 09/19/19 14:00 09/20/19 12:18 Diovan PO 160 mg DAILY LYNNE Administration Nutrition/Malnutrition Assess - Dietary Evaluation Nutrition/Malnutrition Findings: Nutrition Notes Start: 09/18/19 09:40 Freq: Status: Active Protocol: Document 09/18/19 09:40 LP (Rec: 09/18/19 09:43 LP [id number]) Nutrition Notes Need for Assessment generated from: MD Order Initial or Follow up Assessment Current Diagnosis COPD,Diabetes,Hypertension, Heart Failure Other Pertinent Diagnosis Syncope Current Diet Cardiac Labs/Tests BG 155 Pertinent Medications Reviewed Height 6 ft 1 in Weight 113.398 kg [place] Body Weight (kg) 83.63 BMI 33.0 Weight Status Obese Subjective/Other Information Consult for diet education. Pt states eating well [employer] and not really liking food here. Food preferences noted. Pt denies need for diet education . Nutrition Intervention Revisit per MD consult or patient Sign Off request:
[2019-09-21] MEDS: AMIODARONE 200 MG TAB PO SCH ×2 (10:10→10:15)
[2019-09-21] MEDS: ASPIRIN EC 81 MG TAB PO SCH (10:15)
[2019-09-21] MEDS: VALSARTAN 160MG TAB PO SCH (10:15)
[2019-09-21] MEDS: POTASSIUM CHLORIDE ER 20 MEQ TAB PO SCH (10:15)
--- NOTE | 2019-09-21 10:51 | Progress Note ---
<CAROLYN ALEXANDER - Last Filed: 09/21/19 10:55> Assessment and Plan Syncope Hx of coronary artery disease Paroxysmal atrial fibrillation oral anticoagulation with Eliquis has been held. Hypertension Diabetes Noncompliant with outpatient office visits with a supervisor mails Cardiac catheterization findings: 1. Severe three-vessel coronary artery disease including significant proximal left main disease in heavily calcified coronary vessels. 2. Left ventricle systolic function is well preserved, ejection fraction 55%. Awaits transfer to [place] for CT surgical evaluation. Continue medical therapy for coronary artery disease and paroxysmal atrial fibrillation. Subjective Date of service: 09/21/19 Principal diagnosis: A FIB WITH rvr Interval history: Patient is resting in bed comfortably. He awaits transfer to [place]. He denies chest pain. Stable sinus rhythm on telemetry. Objective Vital Signs Temp Pulse Resp BP Pulse Ox 09/21/19 10:40 73 09/21/19 08:32 20 09/21/19 07:46 92 09/21/19 07:12 98.1 F 18 176/117 09/21/19 04:47 185/75 09/21/19 03:41 98.2 F 62 18 185/75 92 09/21/19 03:38 64 09/21/19 00:57 80 199/100 09/20/19 23:29 98.6 F 65 16 199/100 94 09/20/19 22:37 96 09/20/19 20:17 63 09/20/19 19:33 98.2 F 61 18 185/87 95 09/20/19 16:16 181/128 09/20/19 16:01 169/96 09/20/19 15:46 171/96 09/20/19 15:31 155/94 09/20/19 15:16 165/99 09/20/19 15:00 154/123 09/20/19 14:45 175/83 09/20/19 14:31 168/87 09/20/19 14:16 158/91 09/20/19 14:01 171/88 09/20/19 13:46 164/86 09/20/19 13:31 160/83 09/20/19 13:16 173/95 09/20/19 12:31 210/111 09/20/19 12:16 196/98 09/20/19 12:00 60 194/90 96 09/20/19 11:46 69 142/100 94 09/20/19 11:30 59 L 170/101 88 09/20/19 11:16 65 181/74 100 09/20/19 11:09 65 180/100 95 - Physical Examination General: No Apparent Distress HEENT: Positive: PERRL Neck: Positive: trachea midline Cardiac: Positive: Reg Rate and Rhythm Lungs: Positive: Decreased Breath Sounds Neuro: Positive: Grossly Intact Abdomen: Positive: Soft Incision: Cardiac Cath Site Extremities: Absent: edema - Labs and Meds Coagulation 09/20/19 Range/Units 11:02 PT 15.0 H (12.2-14.9) Sec. INR 1.16 H (0.87-1.13) APTT 85.3 H* (24.2-36.6) Sec. CBC 09/20/19 Range/Units 11:02 Hgb 14.5 (11.8-15.2) gm/dl Hct 41.5 (35.5-45.6) % Plt Count 227 (140-440) K/mm3 <DAWIT LOFTON - Last Filed: 09/27/19 23:36> Assessment and Plan I have seen and evaluated the patient and agree with the assessment and plan.
[2019-09-21 17:59] VITALS: BP 166/78
[2019-09-21] MEDS: HEPARIN 5,000 UNIT/1 ML VIAL SUB-Q SCH (18:28)
== END 2019-09-21 19:35 | disposition short-term general hospital (02) | DRG 287 ==
LOC: ED 21:16 → IMCU 09-17 00:23 → 4A 09-17 21:04
PROVIDERS: ADMIT Internal Medicine Geriatric Medicine; ATTEND Internal Medicine
PROC: 3E0234Z Introduction of Serum, Toxoid and Vaccine into Muscle, Percutaneous Approach (ICD-10-PCS; 2019-09-18)
PROC: 4A023N7 Measurement of Cardiac Sampling and Pressure, Left Heart, Percutaneous Approach (ICD-10-PCS; principal; 2019-09-20)
PROC: B2111ZZ Fluoroscopy of Multiple Coronary Arteries using Low Osmolar Contrast (ICD-10-PCS; 2019-09-20)
PROC: B2151ZZ Fluoroscopy of Left Heart using Low Osmolar Contrast (ICD-10-PCS; 2019-09-20)
DX: I25.10 Atherosclerotic heart disease of native coronary artery without angina pectoris (principal); N17.9 Acute kidney failure, unspecified; I47.2 Ventricular tachycardia; I16.1 Hypertensive emergency; R55 Syncope and collapse; E11.9 Type 2 diabetes mellitus without complications; I48.0 Paroxysmal atrial fibrillation; I11.0 Hypertensive heart disease with heart failure; I50.9 Heart failure, unspecified; J44.9 Chronic obstructive pulmonary disease, unspecified; E78.5 Hyperlipidemia, unspecified; Z82.49 Family history of ischemic heart disease and other diseases of the circulatory system; Z86.73 Personal history of transient ischemic attack (TIA), and cerebral infarction without residual deficits; Z83.3 Family history of diabetes mellitus; Z79.01 Long term (current) use of anticoagulants; Z23 Encounter for immunization
CPT/HCPCS: 36415; 70450; 71045; 71275; 76770; 78452; 80048; 82962; 83880; 84443; 84484; 85014; 85018; 85025; 85049; 85520; 85610; 85730; 87116; 90732; 93005; 93010; 93017; 93306; 93458; 93880; G0378; A9270-GY; A9502; C1894; J0282; J0360; J1644; J1940; J2250; J2270; J2785; J3010; J3480; J7030; J7040; J7060; Q9967